=== PATIENT | male | born 1970 | race Caucasian/White ===

== ENCOUNTER → 2023-02-16 | Outpatient (CLI) | payer SELFPAY ==
--- NOTE | 2023-02-16 08:12 | RAD_ITS ---
STUDY: X-RAY - ESOPHAGUS (BARIUM SWALLOW) WITH FLUOROSCOPY REASON FOR EXAM: Male, 52 years old. DYSPHAGIA. History gastroesophageal reflux. TECHNIQUE: 17 view(s) of the esophagus were obtained following swallowing of barium. FLUOROSCOPY TIME (if supplied): (34 seconds) minutes/seconds. 62.03 mGy COMPARISON: None. FINDINGS: There is evidence of a marked degree of dilatation of the entire esophagus. Residual food particles are seen throughout the esophagus. There is decreased peristaltic activity. Diffuse circumferential narrowing of the gastroesophageal reflux. This is suggestive of achalasia. Endoscopic correlation is recommended. Normal visualized aortic arch and descending thoracic aorta. Normal visualized pulmonary parenchyma. Normal visualized osseous structures of the thorax. RAD/Esophagus Dual Contrast IMPRESSION: Findings suggestive of achalasia of the esophagus as described. Endoscopic correlation recommended. Electronically Signed: Lasha Talbot MD at 10:57 EST ,
== END | disposition home or self-care (01) ==
PROVIDERS: PCP Internal Medicine
DX: R13.10 Dysphagia, unspecified (principal)
CPT/HCPCS: 74221